=== PATIENT | female | born 1945 | race Caucasian/White ===

== ENCOUNTER → 2023-10-20 11:07 | Outpatient (REF) | payer OTHER, SELFPAY ==
--- NOTE | 2023-10-20 13:30 | OID.BR.INTR ---
EUGENIED Breast Navigator - Initial
- -
Date of Contact: 10/20/23
Met with patient. Will follow up as needed per protocol.
== END ==
LOC: WDC 11:07
PROVIDERS: ATTENDING PHYSICIAN Internal Medicine Hematology & Oncology; FAMILY PHYSICIAN Family Medicine
DX: N63.32 Unspecified lump in axillary tail of the left breast (principal)
CPT/HCPCS: 88305; 19083; 76642; 88341; 88342; 88365

== ENCOUNTER → 2023-11-13 10:12 | Outpatient (REF) | payer OTHER, SELFPAY | LOC: PET 10:12 | PROVIDERS: ATTENDING PHYSICIAN Internal Medicine Hematology & Oncology | DX: C85.88 Other specified types of non-Hodgkin lymphoma, lymph nodes of multiple sites (principal) | CPT/HCPCS: 78815; A9552 ==

== ENCOUNTER → 2023-12-03 08:19 | Outpatient (REF) | payer OTHER, SELFPAY ==
[2023-12-03 08:30] VITALS: BP 151/78; BP_SYST 53
[2023-12-03] MEDS: VANCOCIN 200 IV (09:45)
[2023-12-03 10:33] VITALS: BP 170/78
== END ==
LOC: RADI 08:19
PROVIDERS: ATTENDING PHYSICIAN Nurse Practitioner Primary Care; FAMILY PHYSICIAN Family Medicine
DX: C85.90 Non-Hodgkin lymphoma, unspecified, unspecified site (principal)
CPT/HCPCS: 36561; 76937; 77001; 99152; 99153; C1788

== ENCOUNTER → 2023-12-04 12:43 | Outpatient (REF) | payer OTHER, SELFPAY | LOC: RCS 12:43 | PROVIDERS: ATTENDING PHYSICIAN Nurse Practitioner Primary Care; FAMILY PHYSICIAN Family Medicine | DX: I42.7 Cardiomyopathy due to drug and external agent (principal); R59.0 Localized enlarged lymph nodes; L29.9 Pruritus, unspecified; C85.88 Other specified types of non-Hodgkin lymphoma, lymph nodes of multiple sites | CPT/HCPCS: 93306; 93356 ==

== ENCOUNTER → 2024-02-05 07:35 | Outpatient (REF) | payer OTHER, SELFPAY | LOC: PET 07:35 | PROVIDERS: ATTENDING PHYSICIAN Internal Medicine Hematology & Oncology; FAMILY PHYSICIAN Family Medicine | DX: C85.88 Other specified types of non-Hodgkin lymphoma, lymph nodes of multiple sites (principal) | CPT/HCPCS: 78815; A9552 ==

== ENCOUNTER 2024-02-24 14:52 | Inpatient (IN) | payer OTHER, SELFPAY ==
[2024-02-24 11:07] VITALS: BP 122/78
--- NOTE | 2024-02-24 11:35 | ED.GENMED ---
History of Present Illness
General
Chief Complaint: Abnormal Lab Value
Source: patient
Time Seen by Provider: 02/24/24 11:19
Travel History
Have you had any contact with someone who has COVID-19?: No
Do you have any symptoms of coronavirus? Fever > 100 degrees, chills, cough, shortness of breath, sore throat, loss of taste or smell, muscle aches, or headache?: No
History of Present Illness
History of Present Illness:
78-year-old female with past medical history of lymphoma sent to the emergency department by her oncologist for evaluation after she had blood work done yesterday which showed low white blood cells and low platelets. Patient notes that since her
last chemo appointment on February 15 she has had diminished p.o. intake, fatigue and yesterday had a fever of 102. Today she reports her main symptom is fatigue. She reports that she feels that it is most likely dehydration as she has not had much to
eat or drink in the last 48 hours combined with her diarrhea. Patient denies any known sick contacts, recent travel or recent antibiotics. Social history otherwise noncontributory
Past History
Past History
ED Past Medical History: GERD, Hypercholesterolemia and Other (BARRETS, abd adhesions)
ED Past Surgical History: Cholecystectomy and Other (HERNIA REPAIR)
Social History
Tobacco: Non-smoker
Alcohol: Occasional
Drug: None
Personal: Single
Living: alone
Review of Systems
Review of Systems
All Other Systems: ROS reviewed and negative except as documented in HPI and ROS
Phy Exam
Physical Exam
Physical Exam:
GENERAL: Alert , in no apparent distress
EYE: conjunctiva clear
NECK: Supple
ENT: o/p clr, mmm.
CARDIAC: Borderline tachycardic rate and rhythm
LUNGS: Clear breath sounds bilaterally, no acute respiratory distress, no wheezes/rales/rhonchi
Abdomen: Soft, nontender, nondistended
NEUROLOGICAL: Alert and oriented
SKIN: Warm and dry, skin intact.
MUSCULOSKELETAL: well perfused.
PSYCH: Normal and appropriate interaction.
Scores
Heart Failure Risk
Heart Failure Risk Score: Not Applicable
Heart Score for Chest Pain Patients
STEMI patient?: Not applicable
Withdrawal Assessment of Alcohol
Withdrawal Assessment Completed?: Not applicable
Course
Orders/Labs/Results
Orders:
Orders
02/24/24 11:30
Urinalysis Reflex To Culture Urgent
02/24/24 11:31
CR Chest - 2 Views Urgent
Comment:
Reason For Exam: leukopenia, fevers
02/24/24 11:41
0.9% Sodium Chloride 1000 ml [Nss] 1,000 ml IV BOLUS
02/24/24 12:04
Basic Metabolic Panel Urgent
Complete Blood Count/With Diff Urgent
Lactic Acid Q4H
Comment: CANCEL 2nd LACTIC ACID IF 1st LACTIC ACID IS LESS THAN 2
Manual Differential Urgent
PTT Urgent
Prothrombin Time Urgent
02/24/24 12:46
Blood Culture Q30M
TAMIKA Source: Blood/Venous
Specimen Description:
Blood Culture Q30M
TAMIKA Source: Blood/Venous
Specimen Description:
Abnormal Lab Results
02/24/24
12:04
WBC 0.7 L* 10^3/uL
(4.8-10.8)
RBC 2.92 L 10^6/uL
(4.20-5.40)
Hgb 9.5 L g/dL
(12.0-16.0)
Hct 27.7 L %
(37.0-47.0)
MCH 32.5 H pg
(27.0-31.0)
RDW 17.2 H %
(11.5-14.5)
Plt Count 57 L 10^3/uL
(130-400)
Abs Neuts (Manual) 0.3 L* 10^3/uL
(1.4-6.5)
Segmented Neutrophils 36 L %
(42-75)
Band Neutrophils 12 H %
(0-3)
Sodium 133 L mmol/L
(135-145)
BUN 21 H mg/dl
(7-17)
Creatinine 1.3 H mg/dL
(0.6-1.0)
02/24/24 12:04
02/24/24 12:04
Vital Signs
Initial and Last Documented VS:
Initial Vital Signs
Temp Pulse Resp BP Pulse Ox
98.9 F 97 18 122/78 97
02/24/24 11:07 02/24/24 11:07 02/24/24 11:07 02/24/24 11:07 02/24/24 11:07
Last Documented Vital Signs
Temp Pulse Resp BP Pulse Ox
98.9 F 97 18 122/78 97
02/24/24 11:07 02/24/24 11:07 02/24/24 11:07 02/24/24 11:07 02/24/24 11:07
MDM/Problems Addressed
Differential Diagnosis Includes:
Neutropenic fever, chemo induced thrombocytopenia, other infectious etiology/viral syndrome
MDM/Problems Addressed:
78-year-old female presenting emergency department for reported leukopenia and thrombocytopenia on outpatient labs done at [facility] yesterday. Patient does not know the exact results. Fever of 102 reported yesterday. Patient is afebrile and
hemodynamically stable here and overall pretty well-appearing. Will recheck labs including blood cultures, chest x-ray and urine. Will order fluids. IV team to be notified to access patient's port. Disposition pending.
*Critical Care Note
Total Time (30-74mins, 75-104mins- exclusive of procedures): Not Applicable
Patient Management
Discussion with other providers: Hospitalist
Escalation/DeEscalation of care consider admission/obs:
Patient's WBC 0.7, absolute neutrophils 0.3 and an increased bandemia. Platelet count 57. Due to patient's fever yesterday combined with her neutropenia and thrombocytopenia will plan for admission for neutropenic precautions. Hospitalist team
was notified and accepts for continued evaluation and treatment.
ED Attending Note
-
Portions of this chart may have been created with voice recognition software.� Occasional wrong word or��sound alike� substitutions may have occurred due to the inherent limitations of voice recognition software.
Discharge Plan
Departure
Patient Disposition: Admit
Date of Disposition: 02/24/24
Time of Disposition: 13:42
Presentation/result/management discussed w/ accepting MD/DO: Hospitalist
Discharge Problem:
Neutropenia with fever, FLORINA (acute kidney injury)
Prescriptions:
No Action
omeprazole 40 mg Capsule,Delayed Release(Dr/Ec)
40 mg PO DAILY
docusate sodium [Colace] 100 mg Capsule
100 mg PO BID
sertraline 50 mg Tablet
50 mg PO DAILY
magnesium 200 mg Tablet
200 mg PO DAILY
melatonin 10 mg Tablet,Disintegrating
10 mg PO HS
prednisone
PO DAILY
Referrals:
Trung Caceres MD [Family Provider] -
Interventions
Interventions:
*Risk Screen - Suicide Last Done: 02/24/24 12:39
*General Assessment Last Done: 02/24/24 11:07
ED- Fall Risk Assessment Last Done: 02/24/24 12:39
*ED COVID-19 Vaccine History Last Done: 02/24/24 11:07
Discharge Date and Time
Print Language: URDU
[2024-02-24 12:05] VITALS: BMI 18.6
[2024-02-24] MEDS: NSS 1000 IV (12:07)
[2024-02-24 12:15] LABS: Hematocrit 27.7 % (37.0-47.0); Hemoglobin 9.5 g/dL (12.0-16.0); Mean Corp Hgb Conc. 34.3 g/dL (33.0-37.0); Mean Corpuscular Hgb 32.5 pg (27.0-31.0); Mean Corpuscular Volume 94.9 fL (81.0-99.0); Mean Platelet Volume 9.8 fL (7.4-10.4); Nucleated Red Blood Cells % 0 %; Platelet Count 57 10^3/uL (130-400); Red Blood Cell Count 2.92 10^6/uL (4.20-5.40); Red Cell Dist. Width 17.2 % (11.5-14.5)
[2024-02-24 12:22] LABS: INR 1.04; PT 13.6 Sec (11.4-14.6)
[2024-02-24 12:23] LABS: APTT 28.6 Sec (23.4-35.0)
[2024-02-24 12:27] LABS: Blood Urea Nitrogen 21 mg/dl (7-17); Calcium 8.7 mg/dl (8.4-10.2); Carbon Dioxide 26 mmol/L (22-30); Chloride 99 mmol/L (98-107); Estimated Creatinine Clearance 27 ml/min; Glucose 98 mg/dl (70-99); Lactic Acid 1.3 mmol/L (0.7-2.0); Potassium 3.9 mmol/L (3.5-5.1); Sodium 133 mmol/L (135-145); eGFR 41.57
[2024-02-24 12:30] LABS: White Blood Cell Count 0.7 10^3/uL (4.8-10.8)
[2024-02-24 12:47] VITALS: BP 99/68
[2024-02-24 13:00] VITALS: BP 118/74
[2024-02-24 13:37] LABS: Band Neutrophils 12 % (0-3); Eosinophils 4 % (0-6); Lymphocytes 40 % (20-51); Monocytes 8 % (2-9); Platelets Checked Yes; Segmented Neutrophils 36 % (42-75)
[2024-02-24 13:38] LABS: Normal RBC Morphology Yes; Total Cells Counted 100
[2024-02-24 13:39] LABS: Absolute Neutrophils -Man Diff 0.3 10^3/uL (1.4-6.5)
--- NOTE | 2024-02-24 14:46 | HPS.HSE ---
Family Physician
-
Family Physician: Trung Myersr
Chief Complaint
-
Abnormal blood work, fever
History of Present Illness
78-year-old female with a past medical history of lymphoma currently receiving chemo was sent by her oncologist's office for abnormal blood work and fever. Patient's last chemo treatment was 02/16/24, and she reports having a fever of 102 yesterday.
Besides her fever, she does not have any other symptoms. She denies chest pain, shortness of breath, or palpitations. No cough. No nausea, no vomiting. No dysuria. No abdominal pain. She does have 1 episode of loose stools a day. Blood work
in the ER today does confirm neutropenia with an absolute neutrophil count of 300.
Medical History
Past Medical History
Past Medical History: Reports Other
Additional Past Medical History:
Lymphoma
Gastroesophageal reflux disease
Banks's esophagus
Hyperlipidemia
Anxiety/depression
Small bowel obstruction
Past Surgical History: Reports Cardiac and Other
Additional Past Surgical History:
Port placement
Exploratory laparotomy, lysis of adhesions 2020
Exploratory laparotomy, closure of internal hernia/mesenteric defect, small bowel resection with primary handsewn anastomosis in 2001
Laparoscopic cholecystectomy in 2002
Social History
Tobacco: Non-smoker
Alcohol: None
Drug: None
Family History
Family History: Not pertinent
Allergies / Home Medications
Allergies reflects when Allergies were last updated in [facility].
Home Medications with original date entered in [facility]
Allergy/Medication List:
Allergies
Allergy/AdvReac Type Severity Reaction Status Date / Time
Cephalosporins Allergy Unknown Verified 02/24/24 11:11
erythromycin base Allergy abdominal Verified 02/24/24 11:11
pain
penicillin V Allergy Hives Verified 02/24/24 11:11
Penicillins Allergy Hives, Verified 02/24/24 11:11
shortness
of breath
Home Medications Table - record
�Medication �Instructions �Recorded �Confirmed
melatonin 10 mg disintegrating 10 mg PO HS 12/02/23 02/24/24
tablet
omeprazole 40 mg capsule,delayed 40 mg PO DAILY 12/02/23 02/24/24
release
sertraline 50 mg tablet 50 mg PO QPM 12/02/23 02/24/24
acetaminophen 650 mg 650 mg PO BIDPRN PRN mild pain 02/24/24 02/24/24
tablet,extended release
acyclovir 400 mg tablet 400 mg PO BID 02/24/24 02/24/24
allopurinol 300 mg tablet 300 mg PO DAILY 02/24/24 02/24/24
lidocaine-prilocaine 2.5 %-2.5 % 1 applic topical DAILYPRN PRN 02/24/24 02/24/24
topical cream chemo port
prochlorperazine maleate 10 mg 10 mg PO Q6HPRN PRN nausea/vomiting 02/24/24 02/24/24
tablet
senna leaf extract 8.7 mg chewable 17.2 mg PO BID 02/24/24 02/24/24
tablet (Senokot)
Review of Systems
-
A 12 point ROS was completed and negative except as noted: Yes
Physical Exam
Vital Signs
Vital Signs
Temp Pulse Resp BP Pulse Ox
98.9 F 97 18 122/78 97
02/24/24 11:07 02/24/24 11:07 02/24/24 11:07 02/24/24 11:07 02/24/24 11:07
Physical Exam
General: No Apparent Distress
HEENT: NormoCephalic, Anicteric, Moist mucous membranes and Atraumatic
Respiratory: Clear
Cardiac: S1/S2 and Regular Rhythm
GI: Soft, Non Tender, Non Distended and Normal Bowel Sounds
Musculoskeletal: No Clubbing, No Cyanosis and No Edema
Neuro: Awake, Alert and Oriented
Psych: Calm
Laboratory Results
-
02/24/24 12:04
02/24/24 12:04
Laboratory Results
PT 13.6 Sec (11.4-14.6) 02/24/24 12:04
INR 1.04 02/24/24 12:04
APTT 28.6 Sec (23.4-35.0) 02/24/24 12:04
Lactic Acid Cancelled 02/24/24 15:30
Impression/Plan
-
HPI: 78-year-old female with a past medical history of lymphoma currently receiving chemo was sent by her oncologist's office for abnormal blood work and fever. Patient's last chemo treatment was 02/16/24, and she reports having a fever of 102
yesterday. Besides her fever, she does not have any other symptoms. She denies chest pain, shortness of breath, or palpitations. No cough. No nausea, no vomiting. No dysuria. No abdominal pain. She does have 1 episode of loose stools a day.
Blood work in the ER today does confirm neutropenia with an absolute neutrophil count of 300.
#Neutropenic fever
Urine analysis negative, chest x-ray negative
Check blood cultures x 2
She has reactions to cephalosporins and penicillin
Will treat empirically with vancomycin and levofloxacin
Consult oncology, trend fever and CBC daily with differential
#Lymphoma
Follows with Dr. Villafuerte
Currently receiving chemo, last treatment 02/16/24
#Pancytopenia
From chemo, monitor
#Elevated creatinine
Creatinine 1.3, baseline 0.6 over 3 years ago
Status post 1 L bolus of normal saline in the ER
Trend creatinine, avoid NSAIDs/nephrotoxic drugs
#Hyponatremia
Mild, monitor
#Anxiety/depression
Continue sertraline
#GERD
Continue PPI
DVT prophylaxis�subcu Lovenox
DNR confirmed by patient upon admission
[2024-02-24 15:02] LABS: Urine Albumin Negative (Neg - Trace); Urine Bilirubin Negative (Negative); Urine Character Clear (Clear); Urine Color Yellow; Urine Glucose Negative (Negative); Urine Ketone Negative (Negative); Urine Leukocyte Negative (Negative); Urine Nitrite Negative (Negative); Urine Occult Blood Negative (Negative); Urine Specific Gravity 1.005 (<1.030); Urine Urobilinogen Negative (Neg - 1+)
--- NOTE | 2024-02-24 15:08 | PHA.VAN.IN ---
Assessment
- Assessment
Renal Function: Unknown baseline (SCR 1.3 vs ~0.6 almost 3 years prior)
Concomitant Antimicrobials: levofloxacin
Plan
- Plan
Initial / Loading Dose: 1250mg - administration pending
Maintenance Regimen: dosing by level
Monitoring: random 02/24 0600
MRSA Screen: Ordered per protocol
Pharmacokinetics Vancomycin I
- -
Patient Age: 78
Patient Sex: Female
Vancomycin Day #: 1
Indication: Neutropenic Fever
Requesting Provider: Dr. Chaudhary
Pertinent Antimicrobial Allergies:
penicillins - hives / shortness of breath
erythromycin - abdominal pain
cephalosporins - unknown
Height / Weight:
Height 5 ft 4 in
Actual Weight 49 kg
IBW in k.7
Pertinent Past Medical History: BMI ~18.5, lymphoma (last chemo 02/16/24)
- Vital Signs / Lab Results
Temp Pulse Resp BP Pulse Ox
98.9 F 97 18 122/78 97
02/24/24 11:07 02/24/24 11:07 02/24/24 11:07 02/24/24 11:07 02/24/24 11:07
Lab Results - Hematology
02/24/24
12:04
WBC 0.7 L*
Band Neutrophils 12 H
Lab Results - Chemistry
02/24/24
12:04
BUN 21 H
Creatinine 1.3 H
Estimated Creat Clear 27
02/24/24 02/24/24
12:04 15:30
Lactic Acid 1.3 Cancelled
Lab Results - Urine
02/24/24
14:55
Urine Nitrite (Reflex) Negative
Leukocyte Esterase Rfl Negative
--- NOTE | 2024-02-24 15:11 | EDRN ---
this RN called the receiving unit and notified them that paper report was going to be tubed up
[2024-02-24] MEDS: VANCOCIN 275 MG IV (15:27)
[2024-02-24 16:08] VITALS: BMI 19.3
[2024-02-24 16:18] VITALS: BP 107/62
--- NOTE | 2024-02-24 16:42 | PTCARENOTE ---
Received patient to unit awake alert and oriented . Neutropenic precautions maintained. Denies any pain or discomfort. Oriented to unit .
[2024-02-24] MEDS: LOVENOX 30 MG SC (17:20)
[2024-02-24] MEDS: ZOLOFT 50 MG PO (17:20)
[2024-02-24] MEDS: LEVAQUIN 750 MG PO (17:20)
[2024-02-24] MEDS: TYLENOL 650 MG PO (17:47)
[2024-02-24] MEDS: COMPAZINE 5 MG IV (17:49)
[2024-02-24] MEDS: SENOKOT 17.1999999999999993 MG PO (19:34)
[2024-02-24] MEDS: ZOVIRAX 400 MG PO (19:34)
[2024-02-24] MEDS: MELATONIN 10 MG PO (21:41)
[2024-02-24 23:08] VITALS: BP 104/52
[2024-02-25 05:08] LABS: Hematocrit 24.1 % (37.0-47.0); Mean Corp Hgb Conc. 33.2 g/dL (33.0-37.0); Mean Corpuscular Hgb 31.9 pg (27.0-31.0); Mean Platelet Volume 10.8 fL (7.4-10.4); Platelet Count 50 10^3/uL (130-400); Red Blood Cell Count 2.51 10^6/uL (4.20-5.40); Red Cell Dist. Width 16.8 % (11.5-14.5)
[2024-02-25 05:15] LABS: White Blood Cell Count 1.2 10^3/uL (4.8-10.8)
[2024-02-25 05:32] LABS: ALT (SGPT) 11 U/L (0-35); AST (SGOT) 13 U/L (14-36); Albumin 2.9 g/dl (3.5-5.0); Alkaline Phosphatase 60 U/L (38-126); Blood Urea Nitrogen 16 mg/dl (7-17); Calcium 8.2 mg/dl (8.4-10.2); Carbon Dioxide 26 mmol/L (22-30); Chloride 107 mmol/L (98-107); Estimated Creatinine Clearance 44 ml/min; Glucose 93 mg/dl (70-99); Magnesium 2.1 mg/dl (1.6-2.3); Potassium 4.3 mmol/L (3.5-5.1); Sodium 136 mmol/L (135-145); Total Bilirubin 0.5 mg/dl (0.2-1.3); Total Protein 4.9 g/dl (6.3-8.2); eGFR > 60.00
[2024-02-25 05:36] LABS: Vancomycin Random 10.1 ug/ml
[2024-02-25 07:35] VITALS: BP 115/70
[2024-02-25] MEDS: ZOVIRAX 400 MG PO ×2 (07:43→20:21)
[2024-02-25] MEDS: ZYLOPRIM 300 MG PO (07:43)
[2024-02-25] MEDS: PROTONIX 40 MG PO (07:43)
[2024-02-25] MEDS: SENOKOT 17.1999999999999993 MG PO ×2 (07:43→20:20)
--- NOTE | 2024-02-25 08:33 | PHA.VAN.FU ---
Vancomycin Assessment / Plan
- Assessment
Renal Function: SCR Decreasing
Neutropenia: ANC = 300 (02/23)
In the past 24 hrs, patient has been: Afebrile
- Assessment - Therapeutic Drug Monitoring
Random Level: 10.1 - drawn ~13.5H after 1250mg loading dose
- Dosing Plan
Adjust Regimen to: Vanc 750mg Q24H - first dose now then 02/25 0600
New Regimen Predicts: AUC (488), Peak (31.3), Trough (12.2)
- Monitoring Plan
No level(s) ordered at this time: consider levels in next few days
- Follow Up
Pharmacy will continue to follow.
Vancomycin Follow UP
- -
Patient Age: 78
Patient Sex: Female
Vancomycin Day #: 2
Indication: Neutropenic Fever
Requesting Provider: Dr. Chaudhary
Pertinent Antimicrobial Allergies:
penicillins - hives / shortness of breath
erythromycin - abdominal pain
cephalosporins - unknown
Height / Weight:
Height 5 ft 3 in
Actual Weight 49.47 kg
IBW in k.7
Pertinent Past Medical History: BMI ~18.5, lymphoma (last chemo 02/16/24)
- Vital Signs / Lab Results
Temp Pulse Resp BP Pulse Ox
98.8 F 91 18 115/70 95
02/25/24 07:35 02/25/24 07:35 02/25/24 07:35 02/25/24 07:35 02/25/24 07:35
Lab Results - Hematology
02/24/24 02/25/24
12:04 04:57
WBC 0.7 L* 1.2 L*
Band Neutrophils 12 H
Lab Results - Chemistry
02/24/24 02/25/24
12:04 04:57
BUN 21 H 16
Creatinine 1.3 H 0.8
Estimated Creat Clear 27 44
Albumin 2.9 L
02/24/24 02/24/24
12:04 15:30
Lactic Acid 1.3 Cancelled
Lab Results - Urine
02/24/24
14:55
Urine Nitrite (Reflex) Negative
Leukocyte Esterase Rfl Negative
Microbiology Results
02/24/24 16:36 Nasal Screen MRSA (PCR) - Final
Nose Staph aureus MRSA
Therapeutic Drug Monitoring
Random Vancomycin 10.1 ug/ml 02/25/24 04:57
[2024-02-25 08:36] LABS: Band Neutrophils 8 % (0-3); Lymphocytes 14 % (20-51); Metamyelocytes 2 % (-); Monocytes 2 % (2-9); Platelets Checked Yes; Segmented Neutrophils 74 % (42-75)
[2024-02-25 08:37] LABS: Normal RBC Morphology Yes; Total Cells Counted 100
[2024-02-25 08:39] LABS: Absolute Neutrophils -Man Diff 0.9 10^3/uL (1.4-6.5)
--- NOTE | 2024-02-25 08:42 | W.PN.HOSP.TC ---
Today's Communication/Plan
-
see bold
Assessment / Plan
Assessment / Plan
HPI: 78-year-old female with a past medical history of lymphoma currently receiving chemo was sent by her oncologist's office for abnormal blood work and fever. Patient's last chemo treatment was 02/16/24, and she reports having a fever of 102
yesterday. Besides her fever, she does not have any other symptoms. She denies chest pain, shortness of breath, or palpitations. No cough. No nausea, no vomiting. No dysuria. No abdominal pain. She does have 1 episode of loose stools a day.
Blood work in the ER today does confirm neutropenia with an absolute neutrophil count of 300.
#Neutropenic fever
Urine analysis negative, chest x-ray negative
She has reactions to cephalosporins and penicillin
Treat empirically with vancomycin and levofloxacin D2
Oncology following, ANC improving at 900 status post growth factor
Blood cultures pending, likely can be discharged tomorrow after negative for 48 hours
#Lymphoma
Follows with Dr. Villafuerte
Currently receiving chemo, last treatment 02/16/24
#Pancytopenia
From chemo, monitor
# Acute kidney injury
Resolved. Creatinine 0.8 today, down from 1.3 upon admission status post 1 L bolus in the ER
Trend creatinine, avoid NSAIDs/nephrotoxic drugs
#Hyponatremia
Mild, monitor
#Anxiety/depression
Continue sertraline
#GERD
Continue PPI
#Underweight with BMI 19.3
Encourage oral intake
DVT prophylaxis�SCDs due to thrombocytopenia
DNR confirmed by patient upon admission
Total time spent to see the patient on the floor, examine the patient, review data and lab results, discuss treatment plan with patient, nursing staff around 39 minutes.
Physical Exam
General: Thin, no acute distress
HEENT: Normocephalic, Atraumatic, EOMI, MMM
Respiratory: Clear to Auscultation bilaterally
Cardiac: Normal S1/S2, Regular Rate and Rhythm
GI: Soft, Nontender, Nondistended, Normal Bowel Sounds
Extremities: No Clubbing, Cyanosis, or Edema
Neuro: Nonfocal/Grossly Intact
Psych: Calm, Cooperative
Derm: No Visible lesions
Anticipated Discharge: Within 24 hours
Subjective/Interval History
-
Date of Service: February 25, 2024
Patient reports feeling well. Denies fever. No chest pain, shortness of breath, or palpitations. No coughing. No dysuria, no abdominal pain.
Objective Data
-
Labs:
Laboratory Results
02/25/24
04:57
WBC 1.2 L*
Hgb 8.0 L
Hct 24.1 L
Plt Count 50 L
Sodium 136
Potassium 4.3
Chloride 107
Carbon Dioxide 26
BUN 16
Creatinine 0.8
Glucose 93
Calcium 8.2 L
Total Bilirubin 0.5
AST 13 L
ALT 11
Alkaline Phosphatase 60
Vital Signs:
Vital Signs
Temp Pulse Resp BP Pulse Ox
98.8 F 91 18 115/70 95
02/25/24 07:35 02/25/24 07:35 02/25/24 07:35 02/25/24 07:35 02/25/24 07:35
[2024-02-25] MEDS: VANCOCIN 150 IV (09:48)
--- NOTE | 2024-02-25 10:56 | CON.ONC ---
Impression
Impression
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
Neutropenic fever
Renal insufficiency
Plan
Plan
Neutropenia and renal insufficiency resolving
Patient likely stable for discharge following completion of cultures
Growth factor effect raising ANC 900
Follow-up in the office
Patient History
History of Present Illness
78-year-old female with a past medical history of T-cell lymphoma currently receiving CHOP chemotherapy of which she received her fourth cycle on 02/15. She was referred to the ER yesterday due to fever of 102. Besides her fever, she does not have
any other symptoms. She denies chest pain, shortness of breath, or palpitations. No cough. No nausea, no vomiting. No dysuria. No abdominal pain. On presentation CBC showed an ANC of 300. She has had no recurrent fever last evening or focal
symptoms of infection. He received growth factor support ANC today 900.
Past-Medical/Surgical History
Past Medical History
T-cell non-Hodgkin's lymphoma
Gastroesophageal reflux disease
Banks's esophagus
Hyperlipidemia
Anxiety/depression
Small bowel obstruction
Past Surgical History
Port placement
Exploratory laparotomy, lysis of adhesions 2020
Exploratory laparotomy, closure of internal hernia/mesenteric defect, small bowel resection with primary handsewn anastomosis in 2001
Laparoscopic cholecystectomy in 2002
Social History
Tobacco: Non-smoker
Alcohol: None
Drug: None
Family History
Family History: Not pertinent
Patient Medication
�Medication �Instructions �Recorded �Confirmed �Last Taken �Type
melatonin 10 mg disintegrating 10 mg PO HS Sleep 12/02/23 02/24/24 3 Days Ago History
tablet ~02/21/24
omeprazole 40 mg capsule,delayed 40 mg PO DAILY Gastrointestinal 12/02/23 02/24/24 3 Days Ago History
release Issue ~02/21/24
sertraline 50 mg tablet 50 mg PO QPM Depression 12/02/23 02/24/24 3 Days Ago History
~02/21/24
acetaminophen 650 mg 650 mg PO BIDPRN PRN mild pain 02/24/24 02/24/24 02/24/24 History
tablet,extended release
acyclovir 400 mg tablet 400 mg PO BID Infection 02/24/24 02/24/24 3 Days Ago History
~02/21/24
allopurinol 300 mg tablet 300 mg PO DAILY Gout 02/24/24 02/24/24 3 Days Ago History
~02/21/24
lidocaine-prilocaine 2.5 %-2.5 % 1 applic topical DAILYPRN PRN 02/24/24 02/24/24 02/16/24 History
topical cream chemo port
prochlorperazine maleate 10 mg 10 mg PO Q6HPRN PRN nausea/vomiting 02/24/24 02/24/24 02/23/24 History
tablet
senna leaf extract 8.7 mg chewable 17.2 mg PO BID Constipation 02/24/24 02/24/24 3 Days Ago History
tablet (Senokot) ~02/21/24
Active Medications
Generic Name Dose Route Start Last Admin
Trade Name Freq PRN Reason Stop Dose Admin
Acetaminophen 650 mg 02/24/24 16:08 02/24/24 17:47
Acetaminophen 325 Mg Tablet PO 03/23/24 16:07 650 mg
Q6HPRN PRN Administration
mild pain/ fever>100.5F
Acyclovir Sodium 400 mg 02/24/24 20:00 02/25/24 07:43
Acyclovir Sodium 200 Mg Capsule PO 03/24/24 19:59 400 mg
BID MAE Administration
Allopurinol 300 mg 02/25/24 08:00 02/25/24 07:43
Allopurinol 300 Mg Tablet PO 03/24/24 07:59 300 mg
DAILY MAE Administration
Vancomycin HCl 1 each/ Device 0 mls @ 0 mls/hr 02/24/24 16:00
IV
PER PROTOCOL MAE
Protocol
As Directed
Vancomycin HCl 750 mg in 150 mls @ 150 mls/hr 02/25/24 10:00 02/25/24 09:48
Vancocin IV 150 mls
DAILY@0600 MAE Administration
Protocol
Levofloxacin/Dextrose 750 mg in 150 mls @ 100 mls/hr 02/26/24 16:00
Levaquin IV
Q48H MAE
Melatonin 10 mg 02/24/24 22:00 02/24/24 21:41
Melatonin 5 Mg Tablet PO 03/23/24 21:59 10 mg
HS MAE Administration
Pantoprazole Sodium 40 mg 02/25/24 08:00 02/25/24 07:43
Pantoprazole 40 Mg Delayed Release Tablet PO 03/24/24 07:59 40 mg
DAILY MAE Administration
Prochlorperazine Edisylate 5 mg 02/24/24 16:08 02/24/24 17:49
Prochlorperazine 10 Mg/2 Ml Vial IV 03/23/24 16:07 5 mg
Q6HPRN PRN Administration
n/v
Sennosides 17.2 mg 02/24/24 20:00 02/25/24 07:43
Sennosides (Senokot) 8.6 Mg Tablet PO 03/23/24 19:59 17.2 mg
BID MAE Administration
Sertraline HCl 50 mg 02/24/24 18:00 02/24/24 17:20
Sertraline 50 Mg Tablet PO 03/23/24 17:59 50 mg
QPM MAE Administration
Sodium Chloride 0 flush 02/24/24 17:00
Sodium Chloride 0.9% (Flush) Syringe IV 03/23/24 16:59
PER PROTOCOL MAE
Review of Systems
-
12 point review of systems fails to elicit additional complaints other than those reviewed in the HPI
Physical Exam
-
Physical Exam
General: No Apparent Distress
HEENT: NormoCephalic, Anicteric, Moist mucous membranes and Atraumatic
Respiratory: Clear
Cardiac: S1/S2 and Regular Rhythm
GI: Soft, Non Tender, Non Distended and Normal Bowel Sounds
Musculoskeletal: No Clubbing, No Cyanosis and No Edema
Neuro: Awake, Alert and Oriented
Psych: Calm
Labs
Lab Results
WBC 1.2 10^3/uL (4.8-10.8) L* 02/25/24 04:57
RBC 2.51 10^6/uL (4.20-5.40) L 02/25/24 04:57
Hgb 8.0 g/dL (12.0-16.0) L 02/25/24 04:57
Hct 24.1 % (37.0-47.0) L 02/25/24 04:57
MCV 96.0 fL (81.0-99.0) 02/25/24 04:57
MCH 31.9 pg (27.0-31.0) H 02/25/24 04:57
MCHC 33.2 g/dL (33.0-37.0) 02/25/24 04:57
RDW 16.8 % (11.5-14.5) H 02/25/24 04:57
Plt Count 50 10^3/uL (130-400) L 02/25/24 04:57
MPV 10.8 fL (7.4-10.4) H 02/25/24 04:57
Creatinine 0.8 mg/dL (0.6-1.0) 02/25/24 04:57
Vital Signs
Vital Signs
Temp Pulse Resp BP Pulse Ox
98.8 F 91 18 115/70 95
02/25/24 07:35 02/25/24 07:35 02/25/24 07:35 02/25/24 07:35 02/25/24 07:35
--- NOTE | 2024-02-25 14:28 | CM ---
Met with patient at bedside; initial assessment completed
Pharmacy verified: [facility], [address] [place] [address]
Receiving Chemo for Lymphoma; last treatment 02/16/2024
Patient reported she lives alone; multilevel condo. Reports she has family nearby for support/assistance if needed
PLOF: patient reported she is independent with ambulation, stairs, and ADLs; Drives
SNF/Rehab/Home Health utilization Hx: none
DME: none
Transportation: plans to drive self home
Plan: Discharge to home when medically stable; no needs anticipated; will follow up with Oncologist
[2024-02-25 16:09] VITALS: BP 115/62
[2024-02-25] MEDS: ZOLOFT 50 MG PO (17:35)
[2024-02-25] MEDS: COMPAZINE 5 MG IV (18:49)
[2024-02-25] MEDS: MELATONIN PO ×2 (22:25→23:46)
[2024-02-26 00:02] VITALS: BP 125/66
--- NOTE | 2024-02-26 05:27 | W.PN.HOSP.TC ---
Addendum entered and electronically signed by Shashi Rosas MD 02/26/24 15:04:
Correction BMI 19.3 within normal limits not underweight
Original Note:
Today's Communication/Plan
-
Likely discharge later today if Blood cultures remain negative 48h
Assessment / Plan
Assessment / Plan
HPI: 78-year-old female with a past medical history of lymphoma currently receiving chemo was sent by her oncologist's office for abnormal blood work and fever. Patient's last chemo treatment was 02/16/24, and she reports having a fever of 102
yesterday. Besides her fever, she does not have any other symptoms. She denies chest pain, shortness of breath, or palpitations. No cough. No nausea, no vomiting. No dysuria. No abdominal pain. She does have 1 episode of loose stools a day.
Blood work in the ER today does confirm neutropenia with an absolute neutrophil count of 300.
#Neutropenic fever
Urine analysis negative, chest x-ray negative
She has reactions to cephalosporins and penicillin
Treated empirically with vancomycin and levofloxacin renally dosed
Oncology following, Neutropenia resolved status post growth factor
Blood cultures NGTD, likely discharge today after negative for 48 hours, no need for further abx on discharge
#Lymphoma
Follows with Dr. Villafuerte
Currently receiving chemo, last treatment 02/16/24
#Pancytopenia
From chemo, monitor
appears stable at this time
# Acute kidney injury
Resolved. Creatinine 0.8, down from 1.3 upon admission status post 1 L bolus in the ER
#Hyponatremia resolved
#Anxiety/depression
Continue sertraline
#GERD
Continue PPI
#Underweight with BMI 19.3
Encourage oral intake
DVT prophylaxis�SCDs due to thrombocytopenia
DNR confirmed by patient upon admission
Total Time Preparing Discharge ___50____ minutes including examination of the patient, summary of the hospital stay, instructions for continuing care to all relevant caregivers; and preparation of discharge records, prescriptions, and referral
forms if necessary.
Physical Exam
General: Thin, no acute distress
HEENT: Normocephalic, Atraumatic, EOMI, MMM
Respiratory: Clear to Auscultation bilaterally
Cardiac: Normal S1/S2, Regular Rate and Rhythm
GI: Soft, Nontender, Nondistended, Normal Bowel Sounds
Extremities: No Clubbing, Cyanosis, or Edema
Neuro: Nonfocal/Grossly Intact
Psych: Calm, Cooperative
Derm: No Visible lesions
Anticipated Discharge: Today
Subjective/Interval History
-
Date of Service: February 26, 2024
Seen and examined at bedside in no acute distress sitting up comfortably in bed. Reports overall feeling well. Denies any new acute issues at this time. Eager to go home.
Objective Data
-
Labs:
Laboratory Results
02/26/24
05:11
WBC Pending
Hgb Pending
Hct Pending
Plt Count Pending
Sodium Pending
Potassium Pending
Chloride Pending
Carbon Dioxide Pending
BUN Pending
Creatinine Pending
Glucose Pending
Calcium Pending
Vital Signs:
Vital Signs
Temp Pulse Resp BP Pulse Ox
99 F 74 18 125/66 95
02/26/24 04:00 02/26/24 00:02 02/26/24 00:02 02/26/24 00:02 02/26/24 01:22
I&O
02/24/24 02/25/24 02/26/24
06:59 06:59 06:59
Intake Total 500 / 500
Balance 500 / 500
[2024-02-26] MEDS: VANCOCIN 150 IV (06:14)
[2024-02-26 07:02] LABS: % Basophils 0.9 % (0-2); % Eosinophils 0.3 % (0-6); % Immature Granulocytes 3.5 % (0-0.5); % Lymphocytes 8.2 % (20.5-51.1); % Monocytes 7.1 % (1.7-9.3); Absolute Immature Granulocytes 0.1 10^3/uL (0-0.05); Absolute Lymphocytes 0.3 10^3/uL (1.2-3.4); Absolute Monocytes 0.2 10^3/uL (0.1-0.6); Absolute Neutrophils 2.7 10^3/uL (1.4-6.5); Hematocrit 24.7 % (37.0-47.0); Hemoglobin 8.2 g/dL (12.0-16.0); Mean Corp Hgb Conc. 33.2 g/dL (33.0-37.0); Mean Corpuscular Hgb 32.4 pg (27.0-31.0); Mean Corpuscular Volume 97.6 fL (81.0-99.0); Mean Platelet Volume 11.3 fL (7.4-10.4); Nucleated Red Blood Cells % 0 %; Platelet Count 63 10^3/uL (130-400); Red Blood Cell Count 2.53 10^6/uL (4.20-5.40); Red Cell Dist. Width 17.1 % (11.5-14.5); White Blood Cell Count 3.4 10^3/uL (4.8-10.8)
[2024-02-26 07:24] LABS: Blood Urea Nitrogen 18 mg/dl (7-17); Calcium 8.4 mg/dl (8.4-10.2); Carbon Dioxide 26 mmol/L (22-30); Chloride 105 mmol/L (98-107); Estimated Creatinine Clearance 44 ml/min; Glucose 102 mg/dl (70-99); Potassium 3.9 mmol/L (3.5-5.1); Sodium 137 mmol/L (135-145); eGFR > 60.00
--- NOTE | 2024-02-26 07:24 | W.PN.ONC2 ---
Today's Communication / Plan
-
Stable for D/C.
Impression
Impression
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
Neutropenic fever
Renal insufficiency
Plan
Plan
Neutropenia and renal insufficiency resolving
Patient likely stable for discharge following completion of cultures
Growth factor effect raising ANC 900 yesterday. WBC 3.4 today
Follow-up in the office
Subjective/Objective
Chief Complaint
ACS Heme Onc
Subjective
Feeling better. No more fever
Vital Signs:
Vital Signs
Temp Pulse Resp BP Pulse Ox
99 F 74 18 125/66 95
02/26/24 04:00 02/26/24 00:02 02/26/24 00:02 02/26/24 00:02 02/26/24 01:22
Lab Results:
Laboratory Data
WBC 3.4 10^3/uL (4.8-10.8) L 02/26/24 05:11
Hgb 8.2 g/dL (12.0-16.0) L 02/26/24 05:11
Plt Count 63 10^3/uL (130-400) L D 02/26/24 05:11
PT 13.6 Sec (11.4-14.6) 02/24/24 12:04
INR 1.04 02/24/24 12:04
APTT 28.6 Sec (23.4-35.0) 02/24/24 12:04
eGFR > 60.00 02/25/24 04:57
Physical Exam
Unchanged
HEENT: No Jaundice
[2024-02-26 07:55] VITALS: BP 112/63
[2024-02-26] MEDS: SENOKOT 17.1999999999999993 MG PO (09:36)
[2024-02-26] MEDS: PROTONIX 40 MG PO (09:36)
[2024-02-26] MEDS: ZYLOPRIM 300 MG PO (09:36)
[2024-02-26] MEDS: ZOVIRAX 400 MG PO (09:38)
--- NOTE | 2024-02-26 12:37 | CM ---
Chart reviewed and plan is to home when stable.
Plan; Home when stable, no needs.
--- NOTE | 2024-02-26 14:52 | PHA.VAN.FU ---
Vancomycin Assessment / Plan
- Assessment
Renal Function: Stable
WBC's are: Trending Up
Neutropenia: ANC = 2700
Concomitant Antimicrobials: levofloxacin
- Dosing Plan
Continue: Vanc 750mg Q24H
- Monitoring Plan
No level(s) ordered at this time: consider levels in next few days
- Follow Up
Pharmacy will continue to follow.
Vancomycin Follow UP
- -
Patient Age: 78
Patient Sex: Female
Vancomycin Day #: 3
Indication: Neutropenic Fever
Requesting Provider: Dr. Chaudhary
Pertinent Antimicrobial Allergies:
penicillins - hives / shortness of breath
erythromycin - abdominal pain
cephalosporins - unknown
Height / Weight:
Height 5 ft 3 in
Actual Weight 49.47 kg
IBW in k.7
Pertinent Past Medical History: BMI ~18.5, lymphoma (last chemo 02/16/24)
- Vital Signs / Lab Results
Temp Pulse Resp BP Pulse Ox
98.7 F 77 16 112/63 95
02/26/24 07:55 02/26/24 07:55 02/26/24 07:55 02/26/24 07:55 02/26/24 07:55
Lab Results - Hematology
02/24/24 02/25/24 02/26/24
12:04 04:57 05:11
WBC 0.7 L* 1.2 L* 3.4 L
Band Neutrophils 12 H 8 H
Lab Results - Chemistry
02/24/24 02/25/24 02/26/24
12:04 04:57 05:11
BUN 21 H 16 18 H
Creatinine 1.3 H 0.8 0.8
Estimated Creat Clear 27 44 44
Albumin 2.9 L
02/24/24 02/24/24
12:04 15:30
Lactic Acid 1.3 Cancelled
Microbiology Results
02/24/24 12:46 Blood Culture - Preliminary
Blood/Venous No Growth in 48 hours- Final report to follow
02/24/24 12:46 Blood Culture - Preliminary
Blood/Venous No Growth in 48 hours- Final report to follow
02/24/24 16:28 Blood Culture - Preliminary
Blood/Venous No Growth in 24 hours- Final report to follow
02/24/24 16:36 Nasal Screen MRSA (PCR) - Final
Nose Staph aureus MRSA
Therapeutic Drug Monitoring
Random Vancomycin 10.1 ug/ml 02/25/24 04:57
--- NOTE | 2024-02-26 15:13 | W.DCSUMMARY ---
Discharge Summary
Discharge Data
Date of Admission: 02/24/24
Date of Discharge: 02/26/24
-
Pending Results: Yes
Additional Pending Results:
official culture results
Hospital Course
78-year-old female with a past medical history of lymphoma currently receiving chemo was sent by her oncologist's office for abnormal blood work and fever. Patient's last chemo treatment was 02/16/24, and she reports having a fever of 102 day prior
to presentation here. Besides her fever, she does not have any other symptoms. She denied chest pain, shortness of breath, or palpitations. No cough. No nausea/vomiting. No dysuria. No abdominal pain. She did report 1 episode of loose stools.
Neutropenic fever, Urine analysis negative, chest x-ray negative. She has hx reactions to cephalosporins and penicillin so she was treated empirically with vancomycin and levofloxacin renally dosed. Oncology following, Neutropenia resolved status
post growth factor. Blood cultures NGTD 48H. Afebrile. Medically stable, abx were discontinued, and patient was discharged home with outpatient follow up recommendations. Acute kidney injury Cr 1.3 was noted on admission, resolved status post 1
L bolus given in ER.
Discharge Plan
-
Patient Disposition: Home (Routine Discharge)
Discharge Diagnosis/Procedures: T-cell non-Hodgkin's lymphoma on chemotherapy
Neutropenic fever
Acute Kidney Injury resolved
Pancytopenia
Mild Hyponatremia Resolved
Anxiety/Depression
GERD
Condition: Fair
Diet: Regular
Activity: As tolerated
Driving Restrictions: As prior to admission
Bathing Restrictions: None
Blood Work: Please repeat CBC with differential and BMP with primary care provider or oncology in 1 week of discharge.
Activity Restrictions/Additional Instructions:
Please follow up with your primary care provider and oncologist in 1 week of discharge.
Referrals:
Nathanael Moser DO [Active] - in one week
Leta Ledezma DO [Family Provider] - in one week
Prescriptions:
Continued
omeprazole 40 mg Capsule,Delayed Release(Dr/Ec)
40 mg PO DAILY
sertraline 50 mg Tablet
50 mg PO QPM
melatonin 10 mg Tablet,Disintegrating
10 mg PO HS
acyclovir 400 mg Tablet
400 mg PO BID
lidocaine-prilocaine 2.5-2.5 % Cream
1 applic TOPICAL DAILYPRN PRN (Reason: chemo port)
acetaminophen 650 mg Tablet Extended Release
650 mg PO BIDPRN PRN (Reason: mild pain)
allopurinol 300 mg Tablet
300 mg PO DAILY
Senokot 8.7 mg Tablet,Chewable
17.2 mg PO BID
prochlorperazine maleate 10 mg Tablet
10 mg PO Q6HPRN PRN (Reason: nausea/vomiting)
Discharge Orders:
Discharge Patient (As Directed); Ordered 02/26/24
Ordered By: Shashi Rosas
Discharge Date and Time
Discharge Date/Time: 02/26/24 16:50
Print Language: PALESTINIAN
[2024-02-26 15:29] VITALS: BP 124/74
== END 2024-02-26 16:50 | disposition home or self-care (01) | DRG 682 ==
LOC: 4 WEST ACU 14:52
PROVIDERS: Physician Assistant Medical; ADMITTING PHYSICIAN Family Medicine; ATTENDING PHYSICIAN Internal Medicine; EMERGENCY PHYSICIAN Emergency Medicine; FAMILY PHYSICIAN Family Medicine; OTHER PHYSICIAN Internal Medicine Hematology & Oncology; REFERRING PHYSICIAN Internal Medicine Hematology & Oncology
DX: N17.9 Acute kidney failure, unspecified (principal); D61.810 Antineoplastic chemotherapy induced pancytopenia; C91.50 Adult T-cell lymphoma/leukemia (HTLV-1-associated) not having achieved remission; E87.1 Hypo-osmolality and hyponatremia; Z68.1 Body mass index [BMI] 19.9 or less, adult; D70.9 Neutropenia, unspecified; R79.89 Other specified abnormal findings of blood chemistry; K21.9 Gastro-esophageal reflux disease without esophagitis; E78.00 Pure hypercholesterolemia, unspecified; K22.70 Barrett's esophagus without dysplasia; R63.6 Underweight; D69.6 Thrombocytopenia, unspecified; F41.9 Anxiety disorder, unspecified; F32.A Depression, unspecified; R50.81 Fever presenting with conditions classified elsewhere; T45.1X5A Adverse effect of antineoplastic and immunosuppressive drugs, initial encounter; Y92.9 Unspecified place or not applicable; Z66 Do not resuscitate; Z85.72 Personal history of non-Hodgkin lymphomas; Z92.21 Personal history of antineoplastic chemotherapy; Z90.49 Acquired absence of other specified parts of digestive tract; Z88.1 Allergy status to other antibiotic agents; Z88.0 Allergy status to penicillin
CPT/HCPCS: 71046; 80048; 80053; 80202; 81003; 83605; 83735; 85025; 85610; 85730; 87040; 87641; 93005; 96361; 96374; 99284

== ENCOUNTER → 2024-03-16 13:45 | Outpatient (REF) | payer OTHER, SELFPAY | LOC: RCS 13:45 | PROVIDERS: ATTENDING PHYSICIAN Internal Medicine Hematology & Oncology | DX: R59.0 Localized enlarged lymph nodes (principal); L29.9 Pruritus, unspecified | CPT/HCPCS: 93306; 93356 ==

== ENCOUNTER → 2024-04-25 08:36 | Outpatient (REF) | payer OTHER, SELFPAY | LOC: PET 08:36 | PROVIDERS: ATTENDING PHYSICIAN Internal Medicine Hematology & Oncology | DX: C85.88 Other specified types of non-Hodgkin lymphoma, lymph nodes of multiple sites (principal) | CPT/HCPCS: 78815; A9552 ==

== ENCOUNTER → 2024-07-27 09:46 | Outpatient (REF) | payer OTHER, SELFPAY | LOC: PET 09:46 | PROVIDERS: ATTENDING PHYSICIAN Internal Medicine Hematology & Oncology | DX: C85.88 Other specified types of non-Hodgkin lymphoma, lymph nodes of multiple sites (principal) | CPT/HCPCS: 78815; A9552 ==

== ENCOUNTER → 2024-10-10 08:55 | Outpatient (REF) | payer OTHER, SELFPAY | LOC: RCS 08:55 | PROVIDERS: ATTENDING PHYSICIAN Internal Medicine; FAMILY PHYSICIAN Physician Assistant | DX: C85.90 Non-Hodgkin lymphoma, unspecified, unspecified site (principal); Z92.21 Personal history of antineoplastic chemotherapy; I49.3 Ventricular premature depolarization; I49.1 Atrial premature depolarization | CPT/HCPCS: 93306; 93356 ==

== ENCOUNTER → 2025-01-09 08:26 | Outpatient (REF) | payer OTHER, SELFPAY | LOC: PET 08:26 | PROVIDERS: ATTENDING PHYSICIAN Internal Medicine Hematology & Oncology | DX: C85.88 Other specified types of non-Hodgkin lymphoma, lymph nodes of multiple sites (principal) | CPT/HCPCS: 78815; A9552 ==

== ENCOUNTER → 2025-05-31 07:56 | Outpatient (REF) | payer OTHER, SELFPAY ==
[2025-05-31 08:14] LABS: Glucose 95 mg/dl (70-99)
== END ==
LOC: PET 07:56
PROVIDERS: ATTENDING PHYSICIAN Internal Medicine Hematology & Oncology
DX: C85.88 Other specified types of non-Hodgkin lymphoma, lymph nodes of multiple sites (principal); R59.0 Localized enlarged lymph nodes; L29.9 Pruritus, unspecified; D61.818 Other pancytopenia; D70.9 Neutropenia, unspecified; K59.00 Constipation, unspecified; R53.83 Other fatigue
CPT/HCPCS: 36415; 78815; 82947; A9552